=== PATIENT | male | born 1955 | race Caucasian/White ===

== ENCOUNTER 2017-11-05 09:51 | Day surgery (SDC) | payer OTHER ==
[~2017-11-05] VITALS: Ht 188 cm; Wt 127.0 kg
[~2017-11-05 09:51] MED LIST: CEPH500 PO; FOLI1 PO; LISI20 PO; Percocet 5-3251 EACH PO; SOTO80 PO; WARF5 PO
== END 2017-11-05 11:46 | disposition home or self-care (01) ==
LOC: ORSCSDS 09:51
DX: Z12.11 Encounter for screening for malignant neoplasm of colon (principal); Z86.010 Personal history of colon polyps; D12.4 Benign neoplasm of descending colon; K62.1 Rectal polyp; K57.30 Diverticulosis of large intestine without perforation or abscess without bleeding; K64.8 Other hemorrhoids; I48.0 Paroxysmal atrial fibrillation; Z79.01 Long term (current) use of anticoagulants; I10 Essential (primary) hypertension; Z86.73 Personal history of transient ischemic attack (TIA), and cerebral infarction without residual deficits; E66.01 Morbid (severe) obesity due to excess calories; Z68.36 Body mass index [BMI] 36.0-36.9, adult; Z79.899 Other long term (current) drug therapy
CPT/HCPCS: J7120

== ENCOUNTER → 2018-05-08 | Outpatient (CLI) | payer OTHER ==
[2018-05-08 10:59] LABS: Prothrombin Time Results 37.6 Sec (9.7-11.5)
[2018-05-08 11:06] LABS: International Normalized Ratio 4.03
== END | disposition home or self-care (01) ==
LOC: LAB EV 10:12 → LAB SHORT 10:12
PROVIDERS: Physician Assistant Surgical
DX: Z79.01 Long term (current) use of anticoagulants (principal); Z51.81 Encounter for therapeutic drug level monitoring
CPT/HCPCS: 85610

== ENCOUNTER 2018-05-25 07:30 | Day surgery (SDC) | payer OTHER ==
[~2018-05-25 07:30] MED LIST changes: -LISI20 PO; +WARF10 PO; -WARF5 PO; +ZESTRIL40 MG PO
[2018-05-25] MEDS ORDERED: ATOR40TA PO (18:11)
[2018-05-25] MEDS ORDERED: VITAMIN B PO (18:20)
[2018-05-25] MEDS ORDERED: VITAMIN E PO (18:20)
== END 2018-05-25 22:45 | disposition home or self-care (01) ==
LOC: WOUND 07:30
DX: S80.11XA Contusion of right lower leg, initial encounter (principal); L03.115 Cellulitis of right lower limb; I10 Essential (primary) hypertension; I48.91 Unspecified atrial fibrillation; E78.5 Hyperlipidemia, unspecified; F17.210 Nicotine dependence, cigarettes, uncomplicated; Z79.01 Long term (current) use of anticoagulants; Z79.899 Other long term (current) drug therapy
CPT/HCPCS: G0463

== ENCOUNTER 2018-05-25 15:16 | Observation (INO) | payer OTHER ==
[~2018-05-25] VITALS: Ht 188 cm; Wt 128.1 kg
[2018-05-25 16:02] LABS: BASOPHILS PERCENT AUTO 1 % (0-2); EOSINOPHILS ABSOLUTE AUTO 0.27 K/mm3 (0.00-0.68); EOSINOPHILS PERCENT AUTO 3 % (0-6); Hematocrit 36.2 % (37.0-53.0); Hemoglobin 11.5 g/dL (13.5-17.5); IMMATURE GRAN ABSOLUTE AUTO 0.04 K/mm3 (0.00-0.10); IMMATURE GRAN PERCENT AUTO 0 % (0-1); LYMPHOCYTES ABSOLUTE AUTO 1.86 K/mm3 (0.84-5.20); LYMPHOCYTES PERCENT AUTO 19 % (21-46); MONOCYTES ABSOLUTE AUTO 0.94 K/mm3 (0.16-1.47); MONOCYTES PERCENT AUTO 9 % (4-13); Mean Corpuscular HGB 34.7 pg (26.0-34.0); Mean Corpuscular HGB Conc 31.8 g/dL (31.5-36.5); Mean Corpuscular Volume 109 fL (80-100); Mean Platelet Volume 10.5 fL (9.1-12.4); NEUTROPHILS ABSOLUTE AUTO 6.83 K/mm3 (1.96-9.15); NEUTROPHILS PERCENT AUTO 68 % (41-73); Platelet Count 315 K/mm3 (150-400); RDW Coefficient Variation 14.1 % (11.7-14.2); RDW Standard Deviation 57.1 fL (35.1-46.3); Red Blood Cell Count 3.31 M/mm3 (4.30-5.90); White Blood Cell Count 10.04 K/mm3 (4.00-11.30)
[2018-05-25 16:12] LABS: International Normalized Ratio 2.14; Prothrombin Time Results 21.2 Sec (9.7-11.5)
[2018-05-25 16:23] LABS: Albumin, Blood 3.2 g/dL (3.4-5.0); Albumin/Globulin Ratio 0.9 (0.8-1.8); Bilirubin, Total 0.5 mg/dL (0.1-1.0); Bun/Creatinine Ratio 15.9 (12.0-20.0); Creatinine, Blood 3.01 mg/dL (0.60-1.20); Globulin, Blood 3.7 g/dL (2.2-4.0); Potassium, Blood 5.4 mmol/L (3.5-5.5); Total Protein, Blood 6.9 g/dL (6.4-8.2)
[2018-05-25] MEDS ORDERED: ATOR40TA PO (18:11)
[2018-05-25] MEDS ORDERED: VITAMIN E PO (18:20)
[2018-05-25] MEDS ORDERED: VITAMIN B PO (18:20)
--- NOTE | 2018-05-26 03:29 | NUR ---
SHIFT SUMMARY THE PT ADMITTED FOR A WOUND OF THE R LEG. FULL CODE. REGULAR DIET. NO CHEMICAL OR MECHANICAL VTE DUE TO SURGER TODAY AND WOUND TO RLE. NPO AT MIDNIGHT. CONSULT FOR SURGERY AND WOUND CARE WITH DR. PERES. LRS AT 100 MLS/HR X1 BAG. PT WAS PREVIOUSLY ON COUMADIN AND VITAMIN K WAS GIVEN IN THE ED TO PREPARE FOR SURGERY TODAY. 18G IV TO R AC. 1 PERSON ASSIST. TAKES MEDICATION WHOLE. THE PT PRESENTED TO [facility] FOR SURGICAL CARE OF A NECROTIC WOUND. THE PT REPORDEDLY WAS CUTTING WOOD WHEN A PIECE HIT THE PTS R CALF, WHICH CAUSED A RAPID DEVELOPMENT OF A HEMATOMA. THE PT PRESENTED TO [facility] 4 DAYS PRIOR TO ADMISSION WHERE AN US WAS COMPLETED AND HE WAS BELIEVED TO HAVE A HEMATOMA AT THAT TIME. THE PT SAW HIS PCP WHO REFERRED PT FOR DEBRIDEMENT. THE PT WOUND WAS DRESSED WITH ABD PADS TO ABSORB BLOODY DRAINAGE WITH KURLEX AND COBAN TO KEEP IN PLACE. THE PT DENIED PAIN AT TIME OF ASSESSMENT BUT STATED THAT PAIN WAS EXCRUCIATING A FEW DAYS AGO. THE PT IS ALERT, ORIENTED, PLEASENT, AND COOPERATIVE WITH CARE. NO APPARENT SIGNS OF ACUTE DISTRESS. ABLE TO MAKE NEEDS KNOWN AND CALL LIGHT IN REACH.
[2018-05-26 05:32] LABS: BASOPHILS ABSOLUTE AUTO 0.06 K/mm3 (0.00-0.23); BASOPHILS PERCENT AUTO 1 % (0-2); EOSINOPHILS ABSOLUTE AUTO 0.23 K/mm3 (0.00-0.68); EOSINOPHILS PERCENT AUTO 3 % (0-6); Hematocrit 33.6 % (37.0-53.0); Hemoglobin 10.6 g/dL (13.5-17.5); IMMATURE GRAN ABSOLUTE AUTO 0.02 K/mm3 (0.00-0.10); IMMATURE GRAN PERCENT AUTO 0 % (0-1); LYMPHOCYTES ABSOLUTE AUTO 1.37 K/mm3 (0.84-5.20); LYMPHOCYTES PERCENT AUTO 20 % (21-46); MONOCYTES ABSOLUTE AUTO 0.73 K/mm3 (0.16-1.47); MONOCYTES PERCENT AUTO 11 % (4-13); Mean Corpuscular HGB 34.5 pg (26.0-34.0); Mean Corpuscular HGB Conc 31.5 g/dL (31.5-36.5); Mean Corpuscular Volume 109 fL (80-100); Mean Platelet Volume 10.9 fL (9.1-12.4); NEUTROPHILS PERCENT AUTO 65 % (41-73); Platelet Count 254 K/mm3 (150-400); RDW Coefficient Variation 14.3 % (11.7-14.2); RDW Standard Deviation 57.4 fL (35.1-46.3); Red Blood Cell Count 3.07 M/mm3 (4.30-5.90); White Blood Cell Count 6.81 K/mm3 (4.00-11.30)
[2018-05-26 05:49] LABS: International Normalized Ratio 1.36
[2018-05-26 05:54] LABS: Bun/Creatinine Ratio 17.4 (12.0-20.0); Creatinine, Blood 2.64 mg/dL (0.60-1.20); Potassium, Blood 5.5 mmol/L (3.5-5.5)
--- NOTE | 2018-05-26 16:36 | NUR ---
PATIENT ALERT AND ORIENTED. AWARE WILL GO FOR SURGERY TOMORROW. DR. PANDYA WRAPPED LEG W/NOE WRAP. IV PATENT W/FLUIDS RUNNING. ABLE TO MAKE NEEDS KNOWN. WILL BE NPO AFTER MIDNITE. AMBULATORY IN ROOM W/CRUTCH. REVIEW I.S. W/PATIENT. CALL LIGHT WITHIN REACH. WCTM
--- NOTE | 2018-05-26 17:48 | NUR ---
PATIENT VOMITED. ASKED DR. SUTTON FOR ANOTHER ANTI NAUSEA MED. REGLAN 5 MG Q4 PRN
--- NOTE | 2018-05-27 03:44 | NUR ---
SHIFT SUMMARY PT DID NOT APPEAR TO FEEL WELL AT THE BEGINNING OF SHIFT. DAY NURSE ADMINISTERED 2 DIFFERENT NAUSEA MEDICATIONS THAT THE PT REPORTED WERE NOT EFFECTIVE. THIS NURSE OFFERED TO CALL TO GET ORDERS FOR ADDITIONAL MEDICATIONS TO TRY AND PT REFUSED STATING THAT ONE OF THEM ALREADY MADE HIM FEEL WORSE. THE PT DID REPORT TO THIS NURSE THAT HE EXPERIENCES INTERMITTENT NAUSEA AND VOMITTING ON OCCATION. PT HAS APPEARED TO SLEEP COMFORTABLY MOST OF THE NIGHT WITH NO APPARENT SIGNS OF ACUTE DISTRESS. ABLE TO MAKE NEEDS KNOWN AND CALL LIGHT IN REACH.
[2018-05-27 05:41] LABS: BASOPHILS ABSOLUTE AUTO 0.03 K/mm3 (0.00-0.23); BASOPHILS PERCENT AUTO 0 % (0-2); EOSINOPHILS ABSOLUTE AUTO 0.08 K/mm3 (0.00-0.68); EOSINOPHILS PERCENT AUTO 1 % (0-6); Hematocrit 33.4 % (37.0-53.0); Hemoglobin 10.8 g/dL (13.5-17.5); IMMATURE GRAN ABSOLUTE AUTO 0.03 K/mm3 (0.00-0.10); IMMATURE GRAN PERCENT AUTO 0 % (0-1); LYMPHOCYTES ABSOLUTE AUTO 1.11 K/mm3 (0.84-5.20); LYMPHOCYTES PERCENT AUTO 13 % (21-46); MONOCYTES ABSOLUTE AUTO 0.67 K/mm3 (0.16-1.47); MONOCYTES PERCENT AUTO 8 % (4-13); Mean Corpuscular HGB 34.3 pg (26.0-34.0); Mean Corpuscular HGB Conc 32.3 g/dL (31.5-36.5); Mean Platelet Volume 10.1 fL (9.1-12.4); NEUTROPHILS ABSOLUTE AUTO 6.58 K/mm3 (1.96-9.15); NEUTROPHILS PERCENT AUTO 77 % (41-73); Platelet Count 241 K/mm3 (150-400); RDW Coefficient Variation 13.6 % (11.7-14.2); RDW Standard Deviation 52.4 fL (35.1-46.3); Red Blood Cell Count 3.15 M/mm3 (4.30-5.90)
[2018-05-27 05:46] LABS: Mean Corpuscular Volume 106 fL (80-100)
[2018-05-27 05:53] LABS: International Normalized Ratio 1.03; Prothrombin Time Results 10.9 Sec (9.7-11.5)
[2018-05-27 06:04] LABS: Bun/Creatinine Ratio 18.8 (12.0-20.0); Calcium, Blood 8.7 mg/dL (8.5-10.1); Creatinine, Blood 1.7 mg/dL (0.60-1.20); Potassium, Blood 5.3 mmol/L (3.5-5.5)
--- NOTE | 2018-05-27 09:54 | NUR ---
05/27/18 0954 Carol Garcia 2PC WHITE FOAM, 1PC SPIRAL BLACK FOAM
--- NOTE | 2018-05-27 10:32 | NUR ---
TO O[facility]IA [facility] AT 0805.
--- NOTE | 2018-05-27 13:53 | NUR ---
met pt in bed resting he reports to be doing well encouraged pt and prayed for him
--- NOTE | 2018-05-27 14:00 | NUR ---
RETURNED FROM O.R. AT 1050 AWAKE AND COOPERATIVE. HE WAS ABLE TO SCOOT HIMSELF FROM THE GURNEY ONTO THE BED. WOUND VAC INTACT TO R ANTEROMEDIAL KHAN WITH RED DRAINAGE IN THE TUBING. NO AIR LEAK. SET AT 125MM CONTINUOUS SUCTION. HIS PAIN IS CONTROLLED. IVF'S CHANGED TO D5 1/2NS. VSS. HIS ARRIVED ABOUT AN HOUR AFTER HE RETURNED.
--- NOTE | 2018-05-27 18:32 | NUR ---
HE FEELS GOOD, CAN JOKE AND SMILE. WOUND VAC HAS SMALL AMT DARK RED DRAINAGE IN CANNISTER. NO AIR LEAK. VOIDED WELL POST OP TODAY. VSS.
[2018-05-28 05:04] LABS: BASOPHILS ABSOLUTE AUTO 0.03 K/mm3 (0.00-0.23); BASOPHILS PERCENT AUTO 0 % (0-2); EOSINOPHILS ABSOLUTE AUTO 0.02 K/mm3 (0.00-0.68); EOSINOPHILS PERCENT AUTO 0 % (0-6); Hematocrit 31.3 % (37.0-53.0); Hemoglobin 10.1 g/dL (13.5-17.5); IMMATURE GRAN ABSOLUTE AUTO 0.04 K/mm3 (0.00-0.10); IMMATURE GRAN PERCENT AUTO 0 % (0-1); LYMPHOCYTES ABSOLUTE AUTO 1.26 K/mm3 (0.84-5.20); LYMPHOCYTES PERCENT AUTO 13 % (21-46); MONOCYTES ABSOLUTE AUTO 0.68 K/mm3 (0.16-1.47); MONOCYTES PERCENT AUTO 7 % (4-13); Mean Corpuscular HGB 34.8 pg (26.0-34.0); Mean Corpuscular HGB Conc 32.3 g/dL (31.5-36.5); Mean Corpuscular Volume 108 fL (80-100); Mean Platelet Volume 10.5 fL (9.1-12.4); NEUTROPHILS ABSOLUTE AUTO 7.63 K/mm3 (1.96-9.15); NEUTROPHILS PERCENT AUTO 79 % (41-73); Platelet Count 243 K/mm3 (150-400); RDW Coefficient Variation 13.4 % (11.7-14.2); RDW Standard Deviation 53.7 fL (35.1-46.3); White Blood Cell Count 9.66 K/mm3 (4.00-11.30)
[2018-05-28 05:20] LABS: International Normalized Ratio 1.02; Prothrombin Time Results 10.8 Sec (9.7-11.5)
[2018-05-28 05:34] LABS: Bun/Creatinine Ratio 18.2 (12.0-20.0); Calcium, Blood 8.6 mg/dL (8.5-10.1); Creatinine, Blood 1.48 mg/dL (0.60-1.20); Potassium, Blood 4.8 mmol/L (3.5-5.5)
--- NOTE | 2018-05-28 06:18 | NUR ---
SHIFT SUMMARY PT IS A 63 Y/O MALE, ADMITTED FOR RLE WOUND. HE HAD A SURGICAL I&D DONE YESTERDAY, 05/27, WITH A WOUND VAC PLACED ON THE R KHAN. THE PT HAD DENIED ANY COMPLAINTS OF PAIN DURING THE NIGHT, AND HAS SAID THAT HIS LEG FEELS "MUCH BETTER" SINCE THE SURGERY. HE ALSO DENIED ANY COMPLAINTS OF NAUSEA OR SOB. D5+1/2NS WAS CONTINUED THROUGH THE NIGHT AT 100 ML/HR. VITALS REMAINED STABLE. NO OTHER ACUTE CHANGES IN PT CONDITION NOTED. WILL CONTINUE TO MONITOR AND TREAT PER EMAR.
--- NOTE | 2018-05-28 12:35 | NUR ---
HE HAS HAD NO COMPLAINTS. HE EATS WELL AND VOIDS WELL. DENIES PAIN ABOVE LEVEL 2. NO AIR LEAK AT WOUND VAC SITE. NOT MUCH MORE DRAINAGE IN CANNISTER THAN YESTERDAY AT 1800. OUTPUT IS DARK RED.
--- NOTE | 2018-05-28 13:22 | NUR ---
Met pt in bed he reports to be doing well, encouraged pt and prayed for him
--- NOTE | 2018-05-28 13:27 | NUR ---
Met pt. in bed resting, he reports doing much better encouraged pt. and offered some - prayers
--- NOTE | 2018-05-28 16:17 | NUR ---
UNABLE TO GET INSURANCE AUTHORIZATION FOR HOME WOUND VAC TODAY. HE WILL PROBABLY BE ABLE TO BE DISCHARGED TOMORROW. HE HAS BEEN ON THE PHONE A LOT TODAY WITH FAMILY AND FRIENDS. HE IS BORED. HE HAS DENIED NEED FOR PAIN MEDICINE.
--- NOTE | 2018-05-28 17:20 | NUR ---
NO CHANGES. HE HAS BEEN VISITING ON THE PHONE WITH DIFFERENT PEOPLE MOST OF THE DAY. IVF'S DONE. NO FEVER. VSS. HOPES TO GO HOME TOMORROW.
[2018-05-29 04:46] LABS: BASOPHILS ABSOLUTE AUTO 0.04 K/mm3 (0.00-0.23); BASOPHILS PERCENT AUTO 1 % (0-2); EOSINOPHILS ABSOLUTE AUTO 0.19 K/mm3 (0.00-0.68); EOSINOPHILS PERCENT AUTO 3 % (0-6); Hematocrit 30.3 % (37.0-53.0); Hemoglobin 9.8 g/dL (13.5-17.5); IMMATURE GRAN ABSOLUTE AUTO 0.03 K/mm3 (0.00-0.10); IMMATURE GRAN PERCENT AUTO 0 % (0-1); LYMPHOCYTES ABSOLUTE AUTO 2.12 K/mm3 (0.84-5.20); LYMPHOCYTES PERCENT AUTO 32 % (21-46); MONOCYTES ABSOLUTE AUTO 0.62 K/mm3 (0.16-1.47); MONOCYTES PERCENT AUTO 9 % (4-13); Mean Corpuscular HGB 34.5 pg (26.0-34.0); Mean Corpuscular HGB Conc 32.3 g/dL (31.5-36.5); Mean Corpuscular Volume 107 fL (80-100); Mean Platelet Volume 10.6 fL (9.1-12.4); NEUTROPHILS PERCENT AUTO 55 % (41-73); Platelet Count 203 K/mm3 (150-400); RDW Coefficient Variation 13.6 % (11.7-14.2); RDW Standard Deviation 53.1 fL (35.1-46.3); Red Blood Cell Count 2.84 M/mm3 (4.30-5.90)
[2018-05-29 05:09] LABS: Bun/Creatinine Ratio 17.2 (12.0-20.0); Calcium, Blood 8.6 mg/dL (8.5-10.1); Creatinine, Blood 1.74 mg/dL (0.60-1.20); Potassium, Blood 4.8 mmol/L (3.5-5.5)
--- NOTE | 2018-05-29 06:33 | NUR ---
SHIFT SUMMARY PT IS A 63 Y/O MALE, ADMITTED WITH RLE WOUND. PT HAD A SURGICAL I&D ON 05/27, AND HAS A WOUND VAC IN PLACE. WOUND VAC SHOWS MINIMAL SANGUINOUS DRAINAGE. PT IS ABLE TO MOVE AND AMBULATE INDEPENDENTLY IN THE ROOM. HE REPORTED PAIN IN HIS LEG, WORSENED WITH AMBULATION AND MOVEMENT. HE WAS MEDICATED X 1 WITH PRN OXYCODONE FOR PAIN. HE DENIED ANY COMPLAINTS OF NAUSEA OR SOB. VITALS REMAINED STABLE. NO OTHER ACUTE CHANGES IN PT CONDITION NOTED. WILL CONTINUE TO MONITOR AND TREAT PER EMAR.
--- NOTE | 2018-05-29 18:19 | NUR ---
SHIFT SUMMARY- PT HAS HAD NO ACUTE CHANGES T/O THE SHIFT. PLAN FOR DISCHARGE IS ON FRIDAY AT THIS TIME, D/T PT WOUND CARE NEEDS. PT ALERT AND ORIENTED AND INDEPENDENT IN THE ROOM, SITTING UP IN BED PREPARING FOR A SHOWER WITH THE SENIOR OUTSIDE SALES REPRESENTATIVE. PT WAS PROVIDED WITH TOILETRIES AND LINNENS WERE CHANGED EARLIER IN THE DAY. SPOKE TO DR ANGEL ABOUT RESTARTING PT HOME MEDCATIONS, SEE EMAR FOR NEW MED ORDERS.
--- NOTE | 2018-05-30 04:41 | NUR ---
SHIFT SUMMARY PT HAD GOOD NIGHT. PT WENT FOR A WALK AT BEGINNING OF SHIFT. PT HAD SOME INCREASED DISCOMFORT POST WALK AND TX PER EMAR. PT SLEPT FOR REMAINDER OF SHIFT W/O COMPLAINT. PT CURRENTLY SLEEPING AND BREATHING EASY. CALL LIGHT IN REACH
[2018-05-30 04:47] LABS: BASOPHILS ABSOLUTE AUTO 0.06 K/mm3 (0.00-0.23); BASOPHILS PERCENT AUTO 1 % (0-2); EOSINOPHILS PERCENT AUTO 4 % (0-6); Hematocrit 32.7 % (37.0-53.0); Hemoglobin 10.5 g/dL (13.5-17.5); IMMATURE GRAN ABSOLUTE AUTO 0.06 K/mm3 (0.00-0.10); IMMATURE GRAN PERCENT AUTO 1 % (0-1); LYMPHOCYTES ABSOLUTE AUTO 2.14 K/mm3 (0.84-5.20); LYMPHOCYTES PERCENT AUTO 26 % (21-46); MONOCYTES ABSOLUTE AUTO 0.87 K/mm3 (0.16-1.47); MONOCYTES PERCENT AUTO 11 % (4-13); Mean Corpuscular HGB 34.7 pg (26.0-34.0); Mean Corpuscular HGB Conc 32.1 g/dL (31.5-36.5); Mean Corpuscular Volume 108 fL (80-100); Mean Platelet Volume 10.5 fL (9.1-12.4); NEUTROPHILS ABSOLUTE AUTO 4.86 K/mm3 (1.96-9.15); NEUTROPHILS PERCENT AUTO 59 % (41-73); Platelet Count 202 K/mm3 (150-400); RDW Coefficient Variation 13.8 % (11.7-14.2); Red Blood Cell Count 3.03 M/mm3 (4.30-5.90); White Blood Cell Count 8.29 K/mm3 (4.00-11.30)
[2018-05-30 05:18] LABS: Bun/Creatinine Ratio 22.2 (12.0-20.0); Creatinine, Blood 1.62 mg/dL (0.60-1.20); Potassium, Blood 4.7 mmol/L (3.5-5.5)
--- NOTE | 2018-05-30 07:10 | NUR ---
assumed care of pt- BEDSIDE REPORT COMPLETE WITH NIGHT KAYLYN FIELDS. PT SLEEPING THROUGH BEDSIDE REPORT. CALL LIGHT IN REACH, NO S&S OF DISTRESS, WOUND VAC PATENT AND DRAINING SEROSANGUANOUS FLUID. WILL ASSESS SHORTLY.
--- NOTE | 2018-05-30 16:51 | NUR ---
SHIFT SUMMARY- PT HAD AN EPPISODE OF HYPOTENSION SBP 77 AND 88. WAS GIVEN A 1000ML FLUID BOLUS THROUGH HIS NEW 18 EM IV IN THE RIGHT FORE ARM. PT WAS ASYMPTOMATIC HE HAD HIS WOUND VAC CHANGED AND HAD BEEN WALKING IN THE HALLS CARRYING HIS WOUND VAC JUST PRIOR TO THE LOW BLOOD PRESSURE READING. DR ANGEL WAS CONTACTED, SHE ORDERED THE FLUID BOLUS AND PT HOME DOSE OF LISINOPRIL WAS DC'D. PT IS CURRENTLY SITTING UP IN BED WITH HIS CALL LIGHT IN REACH, NO S&S OF DISTRESS NOTED ON ROOM AIR. ELASTIC ATTACHER OVERLOCK AT THE BEDSIDE TAKING REPEAT VITALS AFTER FLUID BOLUS AT THIS TIME. WILL CTM.
--- NOTE | 2018-05-30 17:53 | NUR ---
PT BP STILL LOW AFTER 1L FLUID BOLUS. SPOKE TO DR ANGEL, ORDER FOR ANOTHER 1L FLUID BOLUS. PT IS ASYMPTOMATIC AT THIS TIME NO S&S OF DISTRESS OR SOB.
--- NOTE | 2018-05-31 04:08 | NUR ---
SHIFT SUMMARY PT HAD SOME DISCOMFORT EARLY IN SHIFT. PT TX PER EMAR WITH RELIEF. PT HAS SLEPT T/O SHIFT. PT CURRENTLY SLEEPING IN NO DISTRESS. CALL LIGHT IN REACH.
[2018-05-31 05:10] LABS: BASOPHILS ABSOLUTE AUTO 0.05 K/mm3 (0.00-0.23); BASOPHILS PERCENT AUTO 1 % (0-2); EOSINOPHILS ABSOLUTE AUTO 0.29 K/mm3 (0.00-0.68); EOSINOPHILS PERCENT AUTO 4 % (0-6); Hematocrit 31.6 % (37.0-53.0); Hemoglobin 9.8 g/dL (13.5-17.5); IMMATURE GRAN ABSOLUTE AUTO 0.04 K/mm3 (0.00-0.10); IMMATURE GRAN PERCENT AUTO 1 % (0-1); LYMPHOCYTES ABSOLUTE AUTO 2.04 K/mm3 (0.84-5.20); LYMPHOCYTES PERCENT AUTO 26 % (21-46); MONOCYTES ABSOLUTE AUTO 0.91 K/mm3 (0.16-1.47); MONOCYTES PERCENT AUTO 12 % (4-13); Mean Corpuscular HGB 34.3 pg (26.0-34.0); NEUTROPHILS PERCENT AUTO 58 % (41-73); Platelet Count 189 K/mm3 (150-400); RDW Coefficient Variation 13.7 % (11.7-14.2); RDW Standard Deviation 55.9 fL (35.1-46.3); Red Blood Cell Count 2.86 M/mm3 (4.30-5.90); White Blood Cell Count 7.83 K/mm3 (4.00-11.30)
[2018-05-31 05:11] LABS: Mean Corpuscular Volume 111 fL (80-100)
--- NOTE | 2018-05-31 07:57 | NUR ---
ASSUMED CARE OF PT- BEDSIDE REPORT COMPLETE WITH NIGHT RN DONNIE. PT ALERT AND ORIENTED, INDEPENDENT. CALL LIGHT IN REACH, NO S&S OF DISTRESS NOTED. PER REPORT SBP NEVER CAME ABOVE 100, PT NIGHT DOSE OF SODOLOL WAS HELD D/T LOW PRESSURE, HR THIS MORNING IS 90 ON MORNING VITALS.
--- NOTE | 2018-05-31 18:29 | NUR ---
SHIFT SUMMARY- PT HAS HAD NO ACUTE CHANGES T/O THE SHIFT, POSSIBLE D/C TOMORROW PENDING APPROVAL FOR WOUND VAC. PT ALERT AND ORIENTED, BPS HAVE BEEN LOW ALL DAYHIGHEST SBP REACHING 100. PT IS ASYMPTOMATIC, BP MEDS HELD THIS MORNING AND LAST NIGHT DR ANGEL IS AWARE. PT AMBULATES FREQUENTLY IN THE HALLS AND HAD A SHOWER TODAY. NO CURRENT C/O PAIN, MEDICATED FOR PAIN ONCE THIS SHIFT.
[2018-05-31 21:29] LABS: International Normalized Ratio 0.95; Prothrombin Time Results 10.1 Sec (9.7-11.5)
--- NOTE | 2018-06-01 04:31 | NUR ---
SHIFT SUMMARY PT WENT FOR WALK EARLY IN SHIFT. PT HAD NO COMPLAINTS AND WENT TO BED EARLY. PT CURRENTLY SLEEPING AND BREATHING EASY. CALL LIGHT IN REACH.
[2018-06-01 05:01] LABS: BASOPHILS ABSOLUTE AUTO 0.05 K/mm3 (0.00-0.23); BASOPHILS PERCENT AUTO 1 % (0-2); EOSINOPHILS ABSOLUTE AUTO 0.26 K/mm3 (0.00-0.68); EOSINOPHILS PERCENT AUTO 3 % (0-6); Hemoglobin 9.6 g/dL (13.5-17.5); IMMATURE GRAN ABSOLUTE AUTO 0.05 K/mm3 (0.00-0.10); IMMATURE GRAN PERCENT AUTO 1 % (0-1); LYMPHOCYTES ABSOLUTE AUTO 1.57 K/mm3 (0.84-5.20); LYMPHOCYTES PERCENT AUTO 18 % (21-46); MONOCYTES ABSOLUTE AUTO 1.08 K/mm3 (0.16-1.47); MONOCYTES PERCENT AUTO 12 % (4-13); Mean Corpuscular HGB 33.9 pg (26.0-34.0); Mean Corpuscular Volume 110 fL (80-100); Mean Platelet Volume 11.1 fL (9.1-12.4); NEUTROPHILS ABSOLUTE AUTO 5.82 K/mm3 (1.96-9.15); NEUTROPHILS PERCENT AUTO 66 % (41-73); Platelet Count 164 K/mm3 (150-400); RDW Coefficient Variation 13.6 % (11.7-14.2); RDW Standard Deviation 55.1 fL (35.1-46.3); Red Blood Cell Count 2.83 M/mm3 (4.30-5.90); White Blood Cell Count 8.83 K/mm3 (4.00-11.30)
[2018-06-01 05:12] LABS: International Normalized Ratio 0.97; Prothrombin Time Results 10.3 Sec (9.7-11.5)
--- NOTE | 2018-06-01 16:00 | NUR ---
no iv access order placed under incorrect provider name, order has been dc'd error corrected. PLACED UNDER PROVIDER FLYSH IN [place] NO LONGER ACTIVE ORDER.
--- NOTE | 2018-06-01 19:38 | NUR ---
PT IS A/O X4, AMBULATORY AND INDEPENDENT WITH ADL'S. MEDICATED FOR PAIN X2 THIS SHIFT, LAST AT 1650 THIS AFTERNOON AND REPORTS MEDS EFFECTIVE. WOUND VAC REMAINS TO RLE WITH GOOD SUCTION AND SEAL, DRESSING TO BE CHANGED TOMORROW SCHEDULED. NO ACUTE CHANGES NOTED THIS SHIFT, WILL CONTINUE TO MONITOR AND REPORT TO ONCOMING RN
--- NOTE | 2018-06-02 04:49 | NUR ---
SPEEDBOAT OPERATOR SUMMARY NO ACUTE CHANGES THIS SHIFT. PT AAOX4 AND INDEPENDENT. TREATED FOR PAIN X1 WITH 10 MG ROXICODONE JUST BEFORE BED. WOUND VAC PATENT AND DRAINING. CHANGED VAC CANISTER AT START OF SHIFT PREVIOUS CANISTER WAS FULL. MODERATE AMOUNT OF CLEAR/BROWN DRAINAGE NOTED. HELD BETAPACE DUE TO SBP REMAINING IN 90'S. OTHER VSS, WILL CONTINUE TO MONITOR.
[2018-06-02 05:28] LABS: International Normalized Ratio 0.96; Prothrombin Time Results 10.2 Sec (9.7-11.5)
--- NOTE | 2018-06-02 17:35 | NUR ---
SHIFT SUMMARY KATIE COMPLAINED OF RLE PAIN TODAY, GOT PRN OXY AND TYLENOL WHICH WORKED WELL. HIS WOUND VAC WAS CHANGED BY THE PROCEDURE NURSE. INDEPEDNENT IN ROOM, ALERT AND ORIENTED. AWAITING OK FOR HOME WOUND VAC.WCTM
--- NOTE | 2018-06-03 03:46 | NUR ---
Shift summary: Pt doing well. wound vac to right leg working well with no issues noted. Oxycodone given for pain with effective relief. Pt up ambulating several times- up ad linda with wound vac in hand - draining serosanguinous fluid. Pt slept well most of shift. Pt anticipating d/c to home if insurance gets approved for the wound vac use at home.
[2018-06-03 05:16] LABS: International Normalized Ratio 0.95; Prothrombin Time Results 10.1 Sec (9.7-11.5)
--- NOTE | 2018-06-03 14:22 | NUR ---
SHIFT SUMMARY PT. REMAINS AXO. HE WENT FOR A WALK THIS MORNING AND HAD A SHOWER. HE HAS BEEN RELAXING IN HIS BED MOST OF THE DAY. HE IS A PLEASENT GENTLEMAN TO WORK WITH. HE IS AWAITING APPROVAL FROM HIS INSURANCE TO LEAVE WITH A WOUND VAC. IT IS MY UNDERSTANDING THAT THAT IS BEING HANDLED BY CARE MANAGEMENT.
--- NOTE | 2018-06-03 14:46 | NUR ---
TRANSFER OF CARE TO KAYLYN GOMES.
--- NOTE | 2018-06-03 17:00 | NUR ---
SHIFT SUMMARY: ASSUMED CARE AT APPROX. 1445. REPORT RECEIVED FROM KAYLYN MENCHACA. NO ACUTE CHANGES TO REPORT SINCE ASSUMING CARE. WILL CONTINUE TO MONITOR.
--- NOTE | 2018-06-03 23:28 | NUR ---
PT UP INDEPENDANTLY IN RM DURING SHIFT REPORT. WOUND VAC TO RLE, PATENT AND DRAINING DRK TEA COLORED FLUID. WOUND VAC DUE TO BE CHANGED ON FRIDAY, PER REPORT Q3 DAYS. NO C/O PAIN OR DIFFICULTY. PT JUST WAITING FOR INSURANCE APPROVAL FOR WOUND VAC IN ORDER TO GO HOME. PT REQUESTED BOWEL CARE AT START OF SHIFT. HOSPITALIST NOTIFIED AND NEW ORDERS RECEIVED AND GIVEN PER PT REQUEST. PT REQUESTED TO START WITH MIRAL[facility]; GIVEN WITH APPLE JUICE PER REQUEST. DENIED FURTHER NEEDS. RESTING QUIETLY AT THIS TIME. CALL LT IN REACH. WILL REPORT TO MARIOLA PATIÑO.
--- NOTE | 2018-06-04 00:47 | NUR ---
0015 RECEIVED REPORT FROM KAYLYN SHIRLEY. ASSUMED CARE OF PATIENT.
--- NOTE | 2018-06-04 04:10 | NUR ---
SHIFT SUMMARY A/O, ABLE TO MAKE NEEDS KNOWN. COOPERATIVE WITH CARE. ANSWERS QUESTIONS APPROPRIATELY. NO C/O PAIN/DISCOMFORT. UP INDEPENDENTLY IN ROOM. WOUND VAC SECURED AND PATENT. NO ACUTE CHANGES NOTED OVERNIGHT. VSS/AFEBRILE. APPEARED TO SLEEP MUCH OF SHIFT. CALL LIGHT WITHIN REACH. BED IN LOWEST POSITION. CALL LIGHT AND BELONGINGS WITHIN REACH. WCTM. REPORT TO ONCOMING RN.
[2018-06-04 04:53] LABS: International Normalized Ratio 1.01; Prothrombin Time Results 10.7 Sec (9.7-11.5)
[2018-06-04] MEDS ORDERED: ACETAMINOPHEN500 MG PO (11:52)
[2018-06-04] MEDS ORDERED: WARF7.5 PO (11:53)
[2018-06-04] MEDS ORDERED: Percocet 5-3251 EACH PO (11:54)
--- NOTE | 2018-06-04 14:44 | NUR ---
DISCHARGE SUMMARY PT A&O. CALM AND COOPERTIAVE WITH CARE. PT RESTING IN BED DURING SHIFT, UP IND IN ROOM. PT OUT TO SMOKE SEVERAL TIMES THIS AM. PT REPORTS PAIN IN RLE, MEDICATED PER EMAR. PT DENIES SOB AND N/V DURING SHIFT. WOUND VAC TO RLE IN PLACE, C/D/I, SUCTIONS TO 125 PER ORDRES. DRAINAGE OF TEA COLOR FLUIDS. VSS. NO OTHER ACUTE CHANGES NOTED DURING SHIFT. PT EDUCATED ON HOME WOUND VAC AND TAUGHT HOW TO REPLACE CANISTERS IF NEEDED. DRESSING WAS NOT CHANGED PRIOR TO DISCHARGE, ORDERS TO FOLLOW UP WOUND CLINIC TOMORROW, BRASS CLEANER AND CLINICAL COORDINATOR AWARE AND IN AGREEMENT. PT EDUCATED ON DISCHARGE INSTURCTIONS, MEDICATIONS AND FOLLOW UP APPOINTMENTS. PRESCRIPTION CALLED IN TO [facility] PER PT REQUEST. PT LEFT ROOM VIA WHEELCHAIR AT 1306. PT STABLE UPON DISCHARGE.
--- NOTE | 2018-06-04 15:04 | NUR ---
Met pt getting ready to go home, pt. is happy to go home wished pt . all the best while at home.
== END 2018-06-04 13:07 | disposition home or self-care (01) ==
LOC: ER 15:16 → MEDS 15:17 → ER 18:15 → MEDS 18:15 → ER 19:54 → MEDS 19:59 → ENPENDDIS 06-04 11:20 → MEDS 06-04 13:07
PROVIDERS: Family Medicine; Physician Assistant; Student in an Organized Health Care Education/Training Program; Surgery; ADMIT Internal Medicine
DX: S81.811A Laceration without foreign body, right lower leg, initial encounter (principal); I48.2 Chronic atrial fibrillation; N17.9 Acute kidney failure, unspecified; I12.9 Hypertensive chronic kidney disease with stage 1 through stage 4 chronic kidney disease, or unspecified chronic kidney disease; N18.9 Chronic kidney disease, unspecified; D63.1 Anemia in chronic kidney disease; K21.9 Gastro-esophageal reflux disease without esophagitis; E78.5 Hyperlipidemia, unspecified; G47.33 Obstructive sleep apnea (adult) (pediatric); Z79.01 Long term (current) use of anticoagulants; Z79.899 Other long term (current) drug therapy; X58.XXXA Exposure to other specified factors, initial encounter
CPT/HCPCS: 36415; 80048; 80053; 85018; 85025; 85610; 86850; 86900; 86901; 93005; 93010; 94762; 96365; 96375; 99284-25; C9113; J0330; J1100; J2250; J2370; J2405; J2704; J2765; J3010; J3430; J7030; J7042; J7120

== ENCOUNTER 2018-06-05 14:51 | Day surgery (SDC) | payer OTHER ==
[~2018-06-05 14:51] MED LIST changes: +ACETAMINOPHEN500 MG PO; +ATOR40TA PO; +VITAMIN B PO; +VITAMIN E PO; +WARF7.5 PO
== END 2018-06-05 23:00 | disposition home or self-care (01) ==
LOC: WOUND 14:51
DX: S81.801A Unspecified open wound, right lower leg, initial encounter (principal); E78.5 Hyperlipidemia, unspecified; I10 Essential (primary) hypertension; I42.9 Cardiomyopathy, unspecified; Z79.01 Long term (current) use of anticoagulants; W22.8XXA Striking against or struck by other objects, initial encounter

== ENCOUNTER 2018-06-08 12:36 | Day surgery (SDC) | payer OTHER | END 2018-06-08 23:03 | disposition home or self-care (01) | LOC: WOUND 12:36 | DX: S81.801A Unspecified open wound, right lower leg, initial encounter (principal); S80.11XA Contusion of right lower leg, initial encounter; I10 Essential (primary) hypertension; E78.5 Hyperlipidemia, unspecified; I42.9 Cardiomyopathy, unspecified; I48.91 Unspecified atrial fibrillation; F17.200 Nicotine dependence, unspecified, uncomplicated; Z79.01 Long term (current) use of anticoagulants; W22.8XXA Striking against or struck by other objects, initial encounter ==

== ENCOUNTER 2018-06-10 07:50 | Day surgery (SDC) | payer OTHER | END 2018-06-10 22:42 | disposition home or self-care (01) | LOC: WOUND | DX: S81.801A Unspecified open wound, right lower leg, initial encounter (principal); S80.11XS Contusion of right lower leg, sequela; E78.5 Hyperlipidemia, unspecified; I10 Essential (primary) hypertension; I42.9 Cardiomyopathy, unspecified; I48.91 Unspecified atrial fibrillation; Z79.01 Long term (current) use of anticoagulants | CPT/HCPCS: J0330; J1100; J2370; J2405; J2704; J3010; J7120 ==

== ENCOUNTER 2018-06-12 08:30 | Day surgery (SDC) | payer OTHER | END 2018-06-12 22:56 | disposition home or self-care (01) | LOC: WOUND 08:30 | DX: T81.89XA Other complications of procedures, not elsewhere classified, initial encounter (principal); I10 Essential (primary) hypertension; F17.200 Nicotine dependence, unspecified, uncomplicated; E78.5 Hyperlipidemia, unspecified ==

== ENCOUNTER 2018-06-15 15:15 | Day surgery (SDC) | payer OTHER | END 2018-06-15 22:41 | disposition home or self-care (01) | LOC: WOUND 15:15 | DX: T81.89XA Other complications of procedures, not elsewhere classified, initial encounter (principal); S80.11XA Contusion of right lower leg, initial encounter; E78.5 Hyperlipidemia, unspecified; I10 Essential (primary) hypertension; I48.91 Unspecified atrial fibrillation; F17.200 Nicotine dependence, unspecified, uncomplicated; Z79.899 Other long term (current) drug therapy; Z79.01 Long term (current) use of anticoagulants ==

== ENCOUNTER 2018-06-17 07:51 | Day surgery (SDC) | payer OTHER | END 2018-06-18 22:45 | disposition home or self-care (01) | LOC: WOUND 07:51 | DX: T81.89XA Other complications of procedures, not elsewhere classified, initial encounter (principal); S80.11XA Contusion of right lower leg, initial encounter; I10 Essential (primary) hypertension; I48.91 Unspecified atrial fibrillation; I42.9 Cardiomyopathy, unspecified; E78.5 Hyperlipidemia, unspecified; Z79.01 Long term (current) use of anticoagulants; Z86.718 Personal history of other venous thrombosis and embolism ==

== ENCOUNTER 2018-06-19 00:27 | Day surgery (SDC) | payer OTHER | END 2018-06-20 22:55 | disposition home or self-care (01) | LOC: WOUND | DX: L97.215 Non-pressure chronic ulcer of right calf with muscle involvement without evidence of necrosis (principal); S80.11XS Contusion of right lower leg, sequela; E78.5 Hyperlipidemia, unspecified; F17.200 Nicotine dependence, unspecified, uncomplicated; Z79.01 Long term (current) use of anticoagulants ==

== ENCOUNTER 2018-06-22 00:51 | Day surgery (SDC) | payer OTHER | END 2018-06-22 22:47 | disposition home or self-care (01) | LOC: WOUND 00:51 | DX: T81.89XA Other complications of procedures, not elsewhere classified, initial encounter (principal); L97.215 Non-pressure chronic ulcer of right calf with muscle involvement without evidence of necrosis; S80.11XS Contusion of right lower leg, sequela; I10 Essential (primary) hypertension; E78.5 Hyperlipidemia, unspecified; I48.91 Unspecified atrial fibrillation; F17.200 Nicotine dependence, unspecified, uncomplicated; Z86.73 Personal history of transient ischemic attack (TIA), and cerebral infarction without residual deficits; Z79.899 Other long term (current) drug therapy; Z79.01 Long term (current) use of anticoagulants ==

== ENCOUNTER 2018-06-24 00:12 | Day surgery (SDC) | payer OTHER | END 2018-06-24 22:42 | disposition home or self-care (01) | LOC: WOUND 00:12 | DX: T81.89XA Other complications of procedures, not elsewhere classified, initial encounter (principal); L97.812 Non-pressure chronic ulcer of other part of right lower leg with fat layer exposed; S80.11XS Contusion of right lower leg, sequela; I10 Essential (primary) hypertension; I48.91 Unspecified atrial fibrillation; E78.5 Hyperlipidemia, unspecified; F17.200 Nicotine dependence, unspecified, uncomplicated; Z79.01 Long term (current) use of anticoagulants ==

== ENCOUNTER 2018-06-26 00:34 | Day surgery (SDC) | payer OTHER | END 2018-06-26 23:13 | disposition home or self-care (01) | LOC: WOUND 00:34 | DX: T81.89XA Other complications of procedures, not elsewhere classified, initial encounter (principal); L97.215 Non-pressure chronic ulcer of right calf with muscle involvement without evidence of necrosis; S80.11XS Contusion of right lower leg, sequela; I10 Essential (primary) hypertension; E78.5 Hyperlipidemia, unspecified; I48.91 Unspecified atrial fibrillation; F17.200 Nicotine dependence, unspecified, uncomplicated; Z79.899 Other long term (current) drug therapy; Z79.01 Long term (current) use of anticoagulants; Z86.718 Personal history of other venous thrombosis and embolism ==

== ENCOUNTER 2018-06-29 07:50 | Day surgery (SDC) | payer OTHER | END 2018-06-29 22:38 | disposition home or self-care (01) | LOC: WOUND 07:50 | DX: L97.215 Non-pressure chronic ulcer of right calf with muscle involvement without evidence of necrosis (principal); L97.812 Non-pressure chronic ulcer of other part of right lower leg with fat layer exposed; S80.11XS Contusion of right lower leg, sequela; I10 Essential (primary) hypertension; E78.5 Hyperlipidemia, unspecified; F17.200 Nicotine dependence, unspecified, uncomplicated; Z79.01 Long term (current) use of anticoagulants ==

== ENCOUNTER 2018-07-01 07:50 | Day surgery (SDC) | payer OTHER | END 2018-07-01 22:48 | disposition home or self-care (01) | LOC: WOUND 07:50 | DX: T81.89XA Other complications of procedures, not elsewhere classified, initial encounter (principal); S80.11XA Contusion of right lower leg, initial encounter; L97.215 Non-pressure chronic ulcer of right calf with muscle involvement without evidence of necrosis; I10 Essential (primary) hypertension; E78.5 Hyperlipidemia, unspecified; I48.91 Unspecified atrial fibrillation; F17.200 Nicotine dependence, unspecified, uncomplicated; Z79.01 Long term (current) use of anticoagulants ==

== ENCOUNTER 2018-07-03 01:23 | Day surgery (SDC) | payer OTHER | END 2018-07-03 22:44 | disposition home or self-care (01) | LOC: WOUND 01:23 | DX: T81.89XA Other complications of procedures, not elsewhere classified, initial encounter (principal); L97.215 Non-pressure chronic ulcer of right calf with muscle involvement without evidence of necrosis; S80.11XS Contusion of right lower leg, sequela; I10 Essential (primary) hypertension; I48.91 Unspecified atrial fibrillation; E78.5 Hyperlipidemia, unspecified; F17.200 Nicotine dependence, unspecified, uncomplicated; Z79.01 Long term (current) use of anticoagulants; Z79.899 Other long term (current) drug therapy ==

== ENCOUNTER 2018-07-08 00:14 | Day surgery (SDC) | payer OTHER | END 2018-07-08 22:50 | disposition home or self-care (01) | LOC: WOUND 00:14 | DX: T81.89XA Other complications of procedures, not elsewhere classified, initial encounter (principal); L97.215 Non-pressure chronic ulcer of right calf with muscle involvement without evidence of necrosis; S80.11XS Contusion of right lower leg, sequela; I10 Essential (primary) hypertension; E78.5 Hyperlipidemia, unspecified; I48.91 Unspecified atrial fibrillation; F17.200 Nicotine dependence, unspecified, uncomplicated; Z79.899 Other long term (current) drug therapy; Z79.01 Long term (current) use of anticoagulants; Z86.718 Personal history of other venous thrombosis and embolism ==

== ENCOUNTER 2018-07-10 13:53 | Day surgery (SDC) | payer OTHER | END 2018-07-10 22:59 | disposition home or self-care (01) | LOC: WOUND 13:53 | DX: T81.89XA Other complications of procedures, not elsewhere classified, initial encounter (principal); L97.215 Non-pressure chronic ulcer of right calf with muscle involvement without evidence of necrosis; S80.11XS Contusion of right lower leg, sequela; I10 Essential (primary) hypertension; I48.91 Unspecified atrial fibrillation; E78.5 Hyperlipidemia, unspecified; F17.200 Nicotine dependence, unspecified, uncomplicated; Z79.01 Long term (current) use of anticoagulants; Z79.899 Other long term (current) drug therapy; Z86.718 Personal history of other venous thrombosis and embolism ==

== ENCOUNTER 2018-07-13 01:29 | Day surgery (SDC) | payer OTHER | END 2018-07-13 22:38 | disposition home or self-care (01) | LOC: WOUND 01:29 | DX: L97.812 Non-pressure chronic ulcer of other part of right lower leg with fat layer exposed (principal); L97.215 Non-pressure chronic ulcer of right calf with muscle involvement without evidence of necrosis; S80.11XS Contusion of right lower leg, sequela; Z79.01 Long term (current) use of anticoagulants ==

== ENCOUNTER 2018-07-15 00:27 | Day surgery (SDC) | payer OTHER | END 2018-07-15 22:51 | disposition home or self-care (01) | LOC: WOUND 00:27 | DX: L97.215 Non-pressure chronic ulcer of right calf with muscle involvement without evidence of necrosis (principal); S80.11XS Contusion of right lower leg, sequela; I10 Essential (primary) hypertension; I48.91 Unspecified atrial fibrillation; E78.5 Hyperlipidemia, unspecified; F17.200 Nicotine dependence, unspecified, uncomplicated; Z79.01 Long term (current) use of anticoagulants ==

== ENCOUNTER 2018-07-17 09:04 | Day surgery (SDC) | payer OTHER | END 2018-07-17 22:45 | disposition home or self-care (01) | LOC: WOUND 09:04 | DX: T81.89XA Other complications of procedures, not elsewhere classified, initial encounter (principal); L97.212 Non-pressure chronic ulcer of right calf with fat layer exposed; I10 Essential (primary) hypertension; I48.91 Unspecified atrial fibrillation; E78.5 Hyperlipidemia, unspecified; F17.200 Nicotine dependence, unspecified, uncomplicated; Z86.73 Personal history of transient ischemic attack (TIA), and cerebral infarction without residual deficits; Z79.899 Other long term (current) drug therapy; Z79.01 Long term (current) use of anticoagulants | CPT/HCPCS: G0463 ==

== ENCOUNTER 2018-07-20 08:26 | Day surgery (SDC) | payer OTHER | END 2018-07-20 22:40 | disposition home or self-care (01) | LOC: WOUND 08:26 | DX: L97.215 Non-pressure chronic ulcer of right calf with muscle involvement without evidence of necrosis (principal); S80.11XS Contusion of right lower leg, sequela; Z79.01 Long term (current) use of anticoagulants | CPT/HCPCS: G0463 ==

== ENCOUNTER 2018-07-22 10:20 | Day surgery (SDC) | payer OTHER | END 2018-07-22 23:01 | disposition home or self-care (01) | LOC: WOUND 10:20 | DX: T81.89XA Other complications of procedures, not elsewhere classified, initial encounter (principal); L97.215 Non-pressure chronic ulcer of right calf with muscle involvement without evidence of necrosis; S80.11XD Contusion of right lower leg, subsequent encounter; I10 Essential (primary) hypertension; I48.91 Unspecified atrial fibrillation; E78.5 Hyperlipidemia, unspecified; F17.200 Nicotine dependence, unspecified, uncomplicated; Z86.73 Personal history of transient ischemic attack (TIA), and cerebral infarction without residual deficits; Z86.718 Personal history of other venous thrombosis and embolism; Z79.899 Other long term (current) drug therapy; Z79.01 Long term (current) use of anticoagulants ==

== ENCOUNTER 2018-07-24 07:50 | Day surgery (SDC) | payer OTHER | END 2018-07-24 23:03 | disposition home or self-care (01) | LOC: WOUND 07:50 | DX: L97.215 Non-pressure chronic ulcer of right calf with muscle involvement without evidence of necrosis (principal); S80.11XS Contusion of right lower leg, sequela; I10 Essential (primary) hypertension; E78.5 Hyperlipidemia, unspecified; I48.91 Unspecified atrial fibrillation; F17.200 Nicotine dependence, unspecified, uncomplicated; Z86.73 Personal history of transient ischemic attack (TIA), and cerebral infarction without residual deficits; Z79.899 Other long term (current) drug therapy; Z79.01 Long term (current) use of anticoagulants ==

== ENCOUNTER 2018-07-29 10:19 | Day surgery (SDC) | payer OTHER | END 2018-07-29 22:45 | disposition home or self-care (01) | LOC: WOUND 10:19 | DX: T81.89XA Other complications of procedures, not elsewhere classified, initial encounter (principal); L97.212 Non-pressure chronic ulcer of right calf with fat layer exposed; I10 Essential (primary) hypertension; I48.91 Unspecified atrial fibrillation; E78.5 Hyperlipidemia, unspecified; F17.200 Nicotine dependence, unspecified, uncomplicated; Z86.73 Personal history of transient ischemic attack (TIA), and cerebral infarction without residual deficits; Z79.899 Other long term (current) drug therapy; Z79.01 Long term (current) use of anticoagulants; Z86.718 Personal history of other venous thrombosis and embolism ==

== ENCOUNTER 2018-08-05 10:20 | Day surgery (SDC) | payer OTHER | END 2018-08-05 23:05 | disposition home or self-care (01) | LOC: WOUND 10:20 | DX: L97.215 Non-pressure chronic ulcer of right calf with muscle involvement without evidence of necrosis (principal); S80.11XS Contusion of right lower leg, sequela; E78.5 Hyperlipidemia, unspecified; I10 Essential (primary) hypertension; F17.200 Nicotine dependence, unspecified, uncomplicated; Z79.01 Long term (current) use of anticoagulants ==

== ENCOUNTER 2018-08-12 10:20 | Day surgery (SDC) | payer OTHER | END 2018-08-12 23:36 | disposition home or self-care (01) | LOC: WOUND 10:20 | DX: T81.89XA Other complications of procedures, not elsewhere classified, initial encounter (principal); L97.212 Non-pressure chronic ulcer of right calf with fat layer exposed; I10 Essential (primary) hypertension; E78.5 Hyperlipidemia, unspecified; I48.91 Unspecified atrial fibrillation; F17.200 Nicotine dependence, unspecified, uncomplicated; Z86.73 Personal history of transient ischemic attack (TIA), and cerebral infarction without residual deficits; Z79.899 Other long term (current) drug therapy; Z79.01 Long term (current) use of anticoagulants; Z86.718 Personal history of other venous thrombosis and embolism ==

== ENCOUNTER 2018-08-19 10:20 | Day surgery (SDC) | payer OTHER | END 2018-08-19 22:46 | disposition home or self-care (01) | LOC: WOUND 10:20 | DX: T81.89XA Other complications of procedures, not elsewhere classified, initial encounter (principal); L97.212 Non-pressure chronic ulcer of right calf with fat layer exposed; I10 Essential (primary) hypertension; I48.91 Unspecified atrial fibrillation; E78.5 Hyperlipidemia, unspecified; F17.200 Nicotine dependence, unspecified, uncomplicated; Z86.73 Personal history of transient ischemic attack (TIA), and cerebral infarction without residual deficits; Z79.899 Other long term (current) drug therapy; Z79.01 Long term (current) use of anticoagulants; Z86.718 Personal history of other venous thrombosis and embolism ==

== ENCOUNTER 2018-08-26 00:29 | Day surgery (SDC) | payer OTHER | END 2018-08-26 22:44 | disposition home or self-care (01) | LOC: WOUND 00:29 | DX: T81.89XA Other complications of procedures, not elsewhere classified, initial encounter (principal); L97.215 Non-pressure chronic ulcer of right calf with muscle involvement without evidence of necrosis; I10 Essential (primary) hypertension; I48.91 Unspecified atrial fibrillation; E78.5 Hyperlipidemia, unspecified; F17.200 Nicotine dependence, unspecified, uncomplicated; Z86.73 Personal history of transient ischemic attack (TIA), and cerebral infarction without residual deficits; Z79.899 Other long term (current) drug therapy; Z79.01 Long term (current) use of anticoagulants; Z86.718 Personal history of other venous thrombosis and embolism ==

== ENCOUNTER 2018-08-27 09:01 | Day surgery (SDC) | payer OTHER | END 2018-08-27 22:50 | disposition home or self-care (01) | LOC: WOUND 09:01 | DX: T81.89XA Other complications of procedures, not elsewhere classified, initial encounter (principal); L97.215 Non-pressure chronic ulcer of right calf with muscle involvement without evidence of necrosis; I10 Essential (primary) hypertension; I48.91 Unspecified atrial fibrillation; E78.5 Hyperlipidemia, unspecified; F17.200 Nicotine dependence, unspecified, uncomplicated; Z86.718 Personal history of other venous thrombosis and embolism; Z86.73 Personal history of transient ischemic attack (TIA), and cerebral infarction without residual deficits; Z79.899 Other long term (current) drug therapy; Z79.01 Long term (current) use of anticoagulants ==

== ENCOUNTER 2018-09-09 00:21 | Day surgery (SDC) | payer OTHER | END 2018-09-09 22:36 | disposition home or self-care (01) | LOC: WOUND 00:21 | DX: L97.215 Non-pressure chronic ulcer of right calf with muscle involvement without evidence of necrosis (principal); S80.11XS Contusion of right lower leg, sequela; Z79.01 Long term (current) use of anticoagulants ==

== ENCOUNTER 2018-09-28 00:22 | Day surgery (SDC) | payer OTHER | END 2018-09-28 22:50 | disposition home or self-care (01) | LOC: WOUND | DX: L97.215 Non-pressure chronic ulcer of right calf with muscle involvement without evidence of necrosis (principal); S80.11XS Contusion of right lower leg, sequela; E78.5 Hyperlipidemia, unspecified; F17.200 Nicotine dependence, unspecified, uncomplicated; I10 Essential (primary) hypertension; Z79.01 Long term (current) use of anticoagulants ==

== ENCOUNTER → 2018-09-30 | Outpatient (CLI) | payer OTHER | END | disposition home or self-care (01) | LOC: PLD 13:10 → LAB SHORT 13:10 | DX: D48.5 Neoplasm of uncertain behavior of skin (principal) | CPT/HCPCS: 88305 ==

== ENCOUNTER 2018-10-07 00:12 | Day surgery (SDC) | payer OTHER | END 2018-10-07 22:40 | disposition home or self-care (01) | LOC: WOUND 00:12 | DX: L97.215 Non-pressure chronic ulcer of right calf with muscle involvement without evidence of necrosis (principal); S80.11XS Contusion of right lower leg, sequela; E78.5 Hyperlipidemia, unspecified; I10 Essential (primary) hypertension; I42.9 Cardiomyopathy, unspecified; Z79.01 Long term (current) use of anticoagulants | CPT/HCPCS: G0463 ==

== ENCOUNTER 2018-10-20 07:55 | Day surgery (SDC) | payer OTHER | END 2018-10-20 22:36 | disposition home or self-care (01) | LOC: WOUND 07:55 | DX: L97.215 Non-pressure chronic ulcer of right calf with muscle involvement without evidence of necrosis (principal); S80.11XS Contusion of right lower leg, sequela; E78.5 Hyperlipidemia, unspecified; F17.200 Nicotine dependence, unspecified, uncomplicated; I10 Essential (primary) hypertension; Z79.01 Long term (current) use of anticoagulants ==

== ENCOUNTER 2018-10-27 00:22 | Day surgery (SDC) | payer OTHER | END 2018-10-27 22:45 | disposition home or self-care (01) | LOC: WOUND 00:22 | DX: T81.89XA Other complications of procedures, not elsewhere classified, initial encounter (principal); L97.215 Non-pressure chronic ulcer of right calf with muscle involvement without evidence of necrosis; S80.11XS Contusion of right lower leg, sequela; I10 Essential (primary) hypertension; I48.91 Unspecified atrial fibrillation; Z79.01 Long term (current) use of anticoagulants | CPT/HCPCS: Q4196 ==

== ENCOUNTER 2018-11-03 00:19 | Day surgery (SDC) | payer OTHER | END 2018-11-03 22:46 | disposition home or self-care (01) | LOC: WOUND 00:19 | DX: L97.215 Non-pressure chronic ulcer of right calf with muscle involvement without evidence of necrosis (principal); I10 Essential (primary) hypertension; S80.11XS Contusion of right lower leg, sequela; E78.5 Hyperlipidemia, unspecified; F17.200 Nicotine dependence, unspecified, uncomplicated; I42.9 Cardiomyopathy, unspecified; I48.91 Unspecified atrial fibrillation; Z79.01 Long term (current) use of anticoagulants | CPT/HCPCS: G0463 ==

== ENCOUNTER 2018-11-10 08:00 | Day surgery (SDC) | payer OTHER | END 2018-11-10 22:49 | disposition home or self-care (01) | LOC: WOUND 08:00 | DX: Z09 Encounter for follow-up examination after completed treatment for conditions other than malignant neoplasm (principal); Z87.2 Personal history of diseases of the skin and subcutaneous tissue; S80.11XS Contusion of right lower leg, sequela; I10 Essential (primary) hypertension; E78.5 Hyperlipidemia, unspecified; F17.200 Nicotine dependence, unspecified, uncomplicated; Z79.01 Long term (current) use of anticoagulants | CPT/HCPCS: G0463 ==

== ENCOUNTER → 2020-05-22 | Outpatient (CLI) | payer OTHER | END | disposition home or self-care (01) | LOC: PLD 12:28 → LAB SHORT 12:28 | DX: D48.5 Neoplasm of uncertain behavior of skin (principal) | CPT/HCPCS: 88305 ==

== ENCOUNTER 2022-07-10 10:40 | Day surgery (SDC) | payer MEDICARE ==
[~2022-07-10] VITALS: Ht 188 cm; Wt 130.7 kg
[2022-07-10] MEDS ORDERED: XARELTO20 MG (10:56)
[2022-07-10] MEDS ORDERED: ATOR40TA (10:56)
--- NOTE | 2022-07-10 12:37 | NUR ---
07/10/22 1237 KAREN GONZALEZ 3 IV STARTED IN PREOP. FREQUENT INFILTRATE. PT SENT OF OR IV. HAD TO START NEW IV IN OR
[2022-07-10 12:41] VITALS: BP 112/93
--- NOTE | 2022-07-10 12:42 | NUR ---
07/10/22 1242 KAREN GONZALEZ IV HAD TO BE STARTED IN OR- 4TH ATTEMPT. RAN WELL.
== END 2022-07-10 15:00 | disposition home or self-care (01) ==
LOC: ORSCSDS 10:40
PROVIDERS: Internal Medicine Gastroenterology
PROC: 0DBL8ZX Excision of Transverse Colon, Via Natural or Artificial Opening Endoscopic, Diagnostic (ICD-10-PCS; principal; 2022-07-10 12:00)
PROC: 0DBK8ZX Excision of Ascending Colon, Via Natural or Artificial Opening Endoscopic, Diagnostic (ICD-10-PCS; principal; 2022-07-10 12:00)
DX: K62.5 Hemorrhage of anus and rectum (principal); Z86.010 Personal history of colon polyps; D12.2 Benign neoplasm of ascending colon; D12.3 Benign neoplasm of transverse colon; K57.30 Diverticulosis of large intestine without perforation or abscess without bleeding; K64.8 Other hemorrhoids; I10 Essential (primary) hypertension; G47.33 Obstructive sleep apnea (adult) (pediatric); J44.9 Chronic obstructive pulmonary disease, unspecified; I48.91 Unspecified atrial fibrillation; Z79.01 Long term (current) use of anticoagulants; I42.9 Cardiomyopathy, unspecified; Z79.899 Other long term (current) drug therapy
CPT/HCPCS: 88305; J2250; J2704